=== PATIENT | male | born 1985 | race Caucasian/White ===

== ENCOUNTER 2020-12-22 14:04 | Inpatient (IN) | payer MEDICAID ==
[~2020-12-22] VITALS: Ht 188 cm; Wt 110.0 kg
--- NOTE | 2020-12-22 14:39 | PHYS DOC ---
Past History Past Medical History: Diabetes, Hypertension Past Surgical History: Other Additional Past Surgical Histo: hernia repair, cyst Alcohol Use: Occasionally General Adult EDM: Chief Complaint: ABDOMINAL PAIN HPI: HPI: Patient is a 35-year-old male coming in for 4 days of abdominal pain, vomiting. Has not had a bowel movement since 4 days ago. Patient states he has burning in his chest after vomiting. Has any cough or fevers. No known sick contacts. Patient states he had a history of diabetes and was taking Metformin but stopped because of "the rodriguez". He is unable to say whether he has been out of it for over a year. Denies any other medical history. Denies any alcohol, tobacco, drug use. Review of Systems: Review of Systems: Constitutional: Denies fever or chills Eyes: Denies change in visual acuity HENT: Denies nasal congestion or sore throat Respiratory: Denies cough or shortness of breath Cardiovascular: Denies chest pain or edema GI: Denies abdominal pain, nausea, vomiting, bloody stools or diarrhea : Denies dysuria Musculoskeletal: Denies back pain or joint pain Integument: Denies rash Neurologic: Denies headache, focal weakness or sensory changes Endocrine: Denies polyuria or polydipsia Lymphatic: Denies swollen glands Psychiatric: Denies depression or anxiety Allergies: Allergies: Allergies Coded Allergies Type Severity Reaction Last Updated Verified No Known Drug Allergies 12/22/20 No Physical Exam: PE: Constitutional: Well developed, well nourished, no acute distress, non-toxic appearance. [] HENT: Normocephalic, atraumatic, bilateral external ears normal, oropharynx moist, no oral exudates, nose normal. [] Eyes: PERRLA, EOMI, conjunctiva normal, no discharge. [] Neck: Normal range of motion, no tenderness, supple, no stridor. [] Cardiovascular:Heart rate regular rhythm, no murmur [] Lungs & Thorax: Bilateral breath sounds clear to auscultation [] Abdomen: Bowel sounds normal, soft, no tenderness, no masses, no pulsatile masses. [] Skin: Warm, dry, no erythema, no rash. [] Back: No tenderness, no CVA tenderness. [] Extremities: No tenderness, no cyanosis, no clubbing, ROM intact, no edema. [] Neurologic: Alert and oriented X 3, normal motor function, normal sensory function, no focal deficits noted. [] Psychologic: Affect normal, judgement normal, mood normal. [] Current Patient Data: Labs: Laboratory Tests Test 12/22/20 14:19 Glucose (Fingerstick) 376 mg/dL (70-99) H Vital Signs: Vital Signs Date Time Temp Pulse Resp B/P (MAP) Pulse Ox O2 Delivery O2 Flow Rate FiO2 12/22/20 14:17 97.8 108 28 160/108 (125) 97 Room Air EKG: EKG: Sinus tachycardia, heart rate 1 2 bpm, normal axis, no ST elevation depression, no ectopy, normal intervals. [] Radiology/Procedures: Radiology/Procedures: Acute Abdominal Series: 12/22/2020 2:46 PM Reason for study: Abdominal pain and emesis Comparison studies: None available. Technique: Frontal view of the chest was obtained along with supine and upright views of the abdomen. Findings: Nonobstructive bowel gas pattern. No air fluid levels or free air. The lungs are clear without acute consolidative opacity. No pleural effusion or pneumothorax. The cardiac and mediastinal contours are normal. Visualized osseous structures are intact. IMPRESSION: 1. Nonobstructed bowel gas pattern. 2. No acute cardiopulmonary findings. [] Heart Score: C/O Chest Pain: No Risk Factors: Risk Factors: DM, Current or recent (<one month) smoker, HTN, HLP, family history of CAD, obesity. Risk Scores: Score 0 - 3: 2.5% MACE over next 6 weeks - Discharge Home Score 4 - 6: 20.3% MACE over next 6 weeks - Admit for Clinical Observation Score 7 - 10: 72.7% MACE over next 6 weeks - Early Invasive Strategies Course & Med Decision Making: Course & Med Decision Making Pertinent Labs and Imaging studies reviewed. (See chart for details) Labs concerning for DKA even though the patient has a history of type 2 diabetes. Admitted to ICU for insulin drip to Dr. Amato [] Gus Disclaimer: Gus Disclaimer: This electronic medical record was generated, in whole or in part, using a voice recognition dictation system. Departure Departure: Impression: Primary Impression: DKA (diabetic ketoacidosis) Disposition: ADMITTED INPATIENT Admitting Physician: Ratna Amato Condition: STABLE Referrals: PEPITO SANON MD (PCP) RINA WEST MD December 22, 2020 14:39
[2020-12-22] MEDS ORDERED: IV RINGERS SOLUTION,LACTATED 1,000 ML IV ONE ×3 (14:45)
[2020-12-22] MEDS ORDERED: LIDO:MAALOX 1:1 20 ML SINGLE DOSE. PO ONE (14:45)
[2020-12-22] MEDS ORDERED: ONDANSETRON PF 4 MG/2 ML VIAL. IVP ONE (14:45)
--- NOTE | 2020-12-22 14:49 | RAD ---
Acute Abdominal Series: 12/22/2020 2:46 PM Reason for study: Abdominal pain and emesis Comparison studies: None available. Technique: Frontal view of the chest was obtained along with supine and upright views of the abdomen. Findings: Nonobstructive bowel gas pattern. No air fluid levels or free air. The lungs are clear without acute consolidative opacity. No pleural effusion or pneumothorax. The car diac and mediastinal contours are normal. Visualized osseous structures are intact. IMPRESSION: 1. Nonobstructed bowel gas pattern. 2. No acute cardiopulmonary findings. Electronically signed by: Lisa Weiss MD (12/22/2020 2:47 PM) [id number]
[2020-12-22 14:55] LABS: BASO # 0.2 x10^3/uL (0.0-0.2); BASO % 1 % (0-3); EOS # 0.1 x10^3/uL (0.0-0.7); EOS % 1 % (0-3); HEMATOCRIT 39.1 % (39.0-53.0); HEMOGLOBIN 13.7 g/dL (13.0-17.5); LYMPH # 1.5 x10^3/uL (1.0-4.8); LYMPH % 11 % (24-48); MEAN CORPUSCULAR HEMOGLOBIN 33 pg (25-35); MEAN CORPUSCULAR HGB CONC 35 g/dL (31-37); MEAN CORPUSCULAR VOLUME 93 fL (79-100); MONO # 1.1 x10^3/uL (0.0-1.1); MONO % 8 % (0-9); NEUT % 79 % (31-73); PLATELET COUNT 251 x10^3/uL (140-400); RED BLOOD COUNT 4.19 x10^6/uL (4.30-5.70); RED CELL DISTRIBUTION WIDTH 13.4 % (11.5-14.5); WHITE BLOOD COUNT 13.8 x10^3/uL (4.0-11.0)
--- NOTE | 2020-12-22 15:05 | EKG ---
[address] [address] Test Date: 2020-12-22 Test Time: 14:29:05 Pat Name: JANET SOLIS Department: Room: Gender: M [employer] Clerk: PATRICIO : [id number] Requested By: RINA WEST Order Number: [id number] Reading MD: Measurements Intervals [place] Rate: 102 P: 55 ID: [id number] QRS: 42 QRSD: 96 T: 28 QT: 328 QTc: 432 Interpretive Statements SINUS TACHYCARDIA OTHERWISE NORMAL ECG RI6.02 No previous ECG available for comparison
[2020-12-22 15:30] LABS: BARBITURATES NEG (NEG); BENZODIAZEPINES NEG (NEG); CANNABINOIDS NEG (NEG); COCAINE NEG (NEG); METHADONE NEG (NEG); OPIATES NEG (NEG); PHENCYCLIDINE NEG (NEG)
[2020-12-22 15:31] LABS: AMPHETAMINE/METHAMPHETAMINE NEG (NEG)
[2020-12-22 15:41] LABS: BILIRUBIN,URINE SMALL (NEG); CLARITY,URINE CLEAR; COLOR,URINE YELLOW; GLUCOSE,URINE 500 mg/dL (NEG)
[2020-12-22 15:42] LABS: BACTERIA,URINE 0 /HPF (0-FEW); NITRITE,URINE NEG (NEG); SQUAMOUS EPITHELIAL CELL,UR OCC /LPF; UROBILINOGEN,URINE 0.2 mg/dL (0.2 mg/dL); WBC,URINE RARE /HPF (0-4)
[2020-12-22 15:43] LABS: GRANULAR CASTS,URINE FEW /HPF; HYALINE CASTS, URINE OCC /HPF
[2020-12-22 16:14] LABS: % BANDS 5 % (0-9); % EOS 2 % (0-5); % LYMPHS 13 % (24-48); % MONOS 5 % (0-10); % SEGS 75 % (35-66)
[2020-12-22 16:15] LABS: PLT ESTIMATE ADEQUATE (ADEQUATE)
[2020-12-22 16:17] LABS: POTASSIUM 5.4 mmol/L (3.5-5.1)
[2020-12-22 16:43] LABS: ALBUMIN 2.8 g/dL (3.4-5.0); ALBUMIN/GLOBULIN RATIO 0.7 (1.0-1.7); CALCIUM 8.1 mg/dL (8.5-10.1)
[2020-12-22 16:44] LABS: MAGNESIUM 1.7 mg/dL (1.8-2.4); TOTAL BILIRUBIN 0.7 mg/dL (0.2-1.0)
[2020-12-22 16:47] LABS: CREATININE 0.4 mg/dL (0.7-1.3); GFR 244.8
[2020-12-22] MEDS ORDERED: IV NORMAL SALINE 1,000ML 1,000 ML IV SCH (17:30)
[2020-12-22] MEDS ORDERED: IV DEXTROSE 5 %-0.45 % NACL 1,000 ML IV SCH (17:30)
[2020-12-22] MEDS ORDERED: MORPHINE SULFATE 2 MG/ML DISP.SYRIN. IVP PRN (17:30)
[2020-12-22] MEDS ORDERED: POTASSIUM CHLORIDE 10MEQ 100 ML IV PRN ×4 (17:30)
[2020-12-22] MEDS ORDERED: ACETAMINOPHEN 325 MG TABLET PO PRN (17:30)
[2020-12-22] MEDS ORDERED: MAGNESIUM SULFATE 2GM 50 ML IV PRN (17:30)
[2020-12-22] MEDS ORDERED: ONDANSETRON PF 4 MG/2 ML VIAL. IVP PRN (17:30)
[2020-12-22] MEDS ORDERED: SUCRALFATE 1 GM TABLET. PO ONE (18:00)
--- NOTE | 2020-12-22 19:00 | NUR ---
The patient, JANET SOLIS, 35 y/o, M admitted by ARTIS COSME MD, was given written information regarding hospital policies, unit procedures and contact persons. Valuables were checked and logged. Call light at bedside.
[2020-12-22 19:43] VITALS: BP 146/98
[2020-12-22] MEDS ORDERED: POLYETHYLENE GLYCOL 3350 17 GM PACKET. PO PRN (19:45)
[2020-12-22] MEDS: INSULIN REGULAR VIAL 100 UNIT in IV NORMAL SALINE 100ML 100 ML IV PRN (20:02)
[2020-12-22 20:43] VITALS: BP 141/99
[2020-12-22] MEDS: PANTOPRAZOLE IV 40 MG VIAL. IVP SCH (20:44)
[2020-12-22] MEDS: DOCUSATE SODIUM 100 MG CAPSULE PO SCH (21:00)
[2020-12-22 21:25] LABS: POTASSIUM 4.1 mmol/L (3.5-5.1)
[2020-12-22 21:43] VITALS: BP 124/74
[2020-12-22 21:59] LABS: CREATININE 0.7 mg/dL (0.7-1.3); GFR 128.3
[2020-12-22 22:43] VITALS: BP 110/69
[2020-12-22] MEDS: POTASSIUM CL 20MEQ D5-0.45NACL 1,000 ML IV SCH (23:20)
[2020-12-22 23:43] VITALS: BP 116/67
[2020-12-23] VITALS (9 sets, daily range): BP systolic 102–134; BP diastolic 61–82
[2020-12-23 01:11] LABS: CALCIUM 7.8 mg/dL (8.5-10.1); GFR 68.9; POTASSIUM 3.3 mmol/L (3.5-5.1)
[2020-12-23 01:45] LABS: CREATININE 1.2 mg/dL (0.7-1.3)
[2020-12-23] MEDS: INSULIN REGULAR VIAL 100 UNIT in IV NORMAL SALINE 100ML 100 ML IV PRN (04:32)
[2020-12-23 06:03] LABS: BASO # 0.1 x10^3/uL (0.0-0.2); BASO % 1 % (0-3); EOS # 0.1 x10^3/uL (0.0-0.7); EOS % 2 % (0-3); HEMOGLOBIN 11.3 g/dL (13.0-17.5); LYMPH # 1.1 x10^3/uL (1.0-4.8); LYMPH % 14 % (24-48); MEAN CORPUSCULAR HEMOGLOBIN 32 pg (25-35); MEAN CORPUSCULAR HGB CONC 35 g/dL (31-37); MEAN CORPUSCULAR VOLUME 92 fL (79-100); MONO # 0.8 x10^3/uL (0.0-1.1); MONO % 10 % (0-9); NEUT # 6.1 x10^3uL (1.8-7.7); NEUT % 73 % (31-73); PLATELET COUNT 189 x10^3/uL (140-400); RED CELL DISTRIBUTION WIDTH 13.1 % (11.5-14.5); WHITE BLOOD COUNT 8.3 x10^3/uL (4.0-11.0)
[2020-12-23] MEDS: POTASSIUM CL 20MEQ D5-0.45NACL 1,000 ML IV SCH ×3 (06:10→19:39)
[2020-12-23 06:27] LABS: ALBUMIN 2.3 g/dL (3.4-5.0); ALBUMIN/GLOBULIN RATIO 0.5 (1.0-1.7); ALK PHOS 105 U/L (46-116); ANION GAP 15 (6-14); BLOOD UREA NITROGEN 8 mg/dL (8-26); BUN/CREATININE RATIO 7 (6-20); CALCIUM 7.9 mg/dL (8.5-10.1); CARBON DIOXIDE 17 mmol/L (21-32); CHLORIDE 102 mmol/L (98-107); CREATININE 1.1 mg/dL (0.7-1.3); GFR 76.2; GLUCOSE 172 mg/dL (70-99); POTASSIUM 3.1 mmol/L (3.5-5.1); SODIUM 134 mmol/L (136-145); TOTAL BILIRUBIN 0.4 mg/dL (0.2-1.0); TOTAL PROTEIN 6.7 g/dL (6.4-8.2)
[2020-12-23] MEDS ORDERED: DEXTROSE 50% 25 GM / 50ML DISP.SYRIN. IV PRN (06:30)
[2020-12-23 08:11] LABS: ALT (SGPT) 16 U/L (16-63)
[2020-12-23] MEDS: DOCUSATE SODIUM 100 MG CAPSULE PO SCH ×2 (08:45→19:39)
[2020-12-23] MEDS: PANTOPRAZOLE IV 40 MG VIAL. IVP SCH ×2 (08:45→19:38)
[2020-12-23] MEDS: INSULIN LISPRO 300 UNITS/3 ML VIAL. SQ SCH ×3 (09:47→17:15)
[2020-12-23 16:24] LABS: CALCIUM 7.8 mg/dL (8.5-10.1); POTASSIUM 3.4 mmol/L (3.5-5.1)
--- NOTE | 2020-12-23 16:40 | NUR ---
Shift Summary Patient blood sugars continue to be greater that 300s. Insulin drip dc'd today. Treatment will continue. No actue concerns.
--- NOTE | 2020-12-23 17:27 | HP ---
ADMIT DATE: 12/22/2020 HISTORY OF PRESENT ILLNESS: The patient is a 35-year-old male patient who presented to the Emergency Room with a complaint of abdominal pain that has been going on for the last 4 days associated with nausea and vomiting. According to him, he has not had any bowel movement since 4 days ago. The patient stated that he has burning in his chest after vomiting and has no cough or fever. No known sick contact. The patient states he had a history of diabetes and was taking metformin, but stopped because of the coronavirus. He is unable to say whether he has been out of it for over a year. Denied any other medical history. Denied any alcohol, tobacco, or drug use. He apparently was investigated in the Emergency Room and has had lab work done, which showed that his white cell count was slightly high at 13,800. His initial lab work showed a blood sugar of 421. He was acidotic, has dilutional hyponatremia and mild hyperkalemia and high anion gap of 23. He was basically admitted, has received about 3 liters of lactated Ringer's and was admitted to the ICU, started on insulin drip as well as D5 half normal, and his past medical history significant for what seems to be hypercholesterolemia, hypertension, severe gastroesophageal reflux disease and according to him, he was told to have prediabetes, for which he was on Glucophage that he stopped taking at the onset of rodriguez; however, according to him, he has been having polydipsia and polyuria for the last 2 months. Denied any ____ weight loss. PAST SURGICAL HISTORY: Significant for left inguinal hernia repair and perineal cyst resection. ALLERGIES: He has no known drug allergies. MEDICATIONS: He has not been on any medication. FAMILY HISTORY: Has one sister who is younger and healthy. His father of a drug overdose. His mother is still alive and works as a registered nurse at the [employer]; she has thyroid problems, but otherwise healthy. SOCIAL HISTORY: He is , has one daughter. He smokes. He drinks alcohol occasionally, but does not use any drugs. He is currently on disability. PHYSICAL EXAMINATION: GENERAL: On arrival to the Emergency Room, he was well-developed, well-nourished, in no acute distress. There was no pallor, jaundice or cyanosis. No lymphadenopathy, no thyromegaly, no jugular venous distention, no lower limb edema. VITAL SIGNS: His heart rate was 108, blood pressure was 160/108, temperature 97.8, respiratory rate was 28 and oxygen saturation was 97% on room air. HEAD, EYES, EARS, NOSE AND THROAT: Normocephalic, atraumatic. NECK: Supple. HEART: Showed normal first and second heart sounds, no gallop or murmur. CHEST: Clear to auscultation. No crepitation or rhonchi. ABDOMEN: Distended, some tenderness mostly in the suprapubic area. No guarding or rigidity. No organomegaly. All hernial orifices intact. Bowel sounds normal. NEUROLOGIC: He was grossly intact. LABORATORY DATA: His lab work on arrival to the Emergency Room showed a white cell count of 13,800, hemoglobin 13.7, hematocrit 39, MCV 93 and platelet count 251,000 with a manual differential showed 79% polymorphs, 11% lymphocytes, 8% monocytes. His chemistry initially showed a serum sodium 129, potassium 5.4, chloride 95, bicarbonate 11, anion gap of 23, BUN 12, creatinine 0.4. Estimated GFR was 244 mL per minute. His glucose was 121, calcium was 8.1, magnesium was 1.7. Total bilirubin and ALT were normal. AST and alkaline phosphatase slightly elevated. Total protein 7, albumin was 2.8. Serum lipase was ____. His venous blood gas showed a pH of 7.22, a pCO2 of 17, pO2 of 92, bicarbonate 7 and oxygen saturation was 96% on FiO2 of 21%. Urinalysis showed the urine was yellow, clear with a pH of 5.5, specific gravity of 1.030. There was large amount of protein, large amount of glucose, large amount of ketones, moderate amount of blood, negative for nitrite, small bilirubin. The leukocyte esterase was negative. There was 3-5 rbc's, rare wbc's and no bacteria. Toxic screen was essentially negative. Has acute abdomen series, which showed the patient has nonobstructive bowel gas pattern. No air fluid level or free air. The lungs are clear without acute consolidative opacity. No pleural effusion or pneumothorax. The cardiac and mediastinal contours are normal. ASSESSMENT AND PLAN: The patient was admitted with diabetic ketoacidosis, treated as per diabetic ketoacidosis. Once his blood sugar is well controlled, we will start him on insulin sliding scale and obviously we will also start antihypertensive medication and his cholesterol lowering agent. Obviously started educating him about how to use insulin and also get diabetic education. WALDEMAR/ROSANGELA/LORIE DR: WALDEMAR/socorro TID: [id number]
--- NOTE | 2020-12-24 01:08 | PN ---
DATE: 12/23/2020 SUBJECTIVE: The patient is resting slightly propped up in bed, in no apparent distress. He continued to have mild abdominal pain, but has no more nausea and vomiting and no burning sensation in chest. Starting on Protonix. His blood sugar is much better controlled and has tolerated his breakfast and lunch. PHYSICAL EXAMINATION: GENERAL: When I examined him, he looked well and was clearly in no apparent respiratory distress. No pallor, jaundice, cyanosis, or thyromegaly. No jugular distention. No limb edema. VITAL SIGNS: His heart rate was 85, blood pressure was 116/73, temperature 97.8, respiratory rate 20, and oxygen saturation was 93% on room air. The rest of clinical exam stable. LABORATORY DATA: This morning showed a serum sodium 133, potassium 3.3, chloride 101, bicarbonate 16, anion gap of 16, BUN of 8, creatinine 1.2. Estimated GFR was 68 mL per minute. His glucose was 226 and calcium was 7.8. His white cell count is 8300, hemoglobin 11, hematocrit 32, MCV 92 and platelet count of 189,000 with normal manual differential. ASSESSMENT: This is a 35-year-old male patient who was admitted with diabetic ketoacidosis, probably type 1 diabetes mellitus. He has also history of hyperlipidemia, gastroesophageal reflux disease. PLAN: My plan is to continue with insulin sliding scale and we will monitor him overnight and however, he can go home tomorrow to continue on insulin sliding scale. Probably, he can continue his metformin. He will need obviously education to check his blood sugar and to inject himself with insulin and he was also counseled about smoking. WALDMEAR/EVELYNE DR: Sonam TID: [id number]
[2020-12-24] MEDS: POTASSIUM CL 20MEQ D5-0.45NACL 1,000 ML IV SCH (05:07)
--- NOTE | 2020-12-24 05:40 | NUR ---
Pt reports having a moderate BM last night and denies any further abdominal discomfort. Pt is very hopeful to return home later today. Pt educated on importance of checking his blood sugars and administering insulin, V/U but will require reinforcement.
[2020-12-24 05:46] VITALS: BP 104/68
[2020-12-24 06:06] LABS: BASO # 0.1 x10^3/uL (0.0-0.2); BASO % 1 % (0-3); EOS # 0.1 x10^3/uL (0.0-0.7); EOS % 2 % (0-3); HEMATOCRIT 33.8 % (39.0-53.0); HEMOGLOBIN 11.6 g/dL (13.0-17.5); LYMPH # 1.5 x10^3/uL (1.0-4.8); LYMPH % 20 % (24-48); MEAN CORPUSCULAR HEMOGLOBIN 32 pg (25-35); MEAN CORPUSCULAR HGB CONC 34 g/dL (31-37); MEAN CORPUSCULAR VOLUME 92 fL (79-100); MONO # 0.7 x10^3/uL (0.0-1.1); MONO % 10 % (0-9); NEUT % 68 % (31-73); PLATELET COUNT 189 x10^3/uL (140-400); RED BLOOD COUNT 3.66 x10^6/uL (4.30-5.70); RED CELL DISTRIBUTION WIDTH 13.2 % (11.5-14.5); WHITE BLOOD COUNT 7.4 x10^3/uL (4.0-11.0)
[2020-12-24 06:21] LABS: ALBUMIN 2.2 g/dL (3.4-5.0); ALBUMIN/GLOBULIN RATIO 0.5 (1.0-1.7); CREATININE 0.9 mg/dL (0.7-1.3); POTASSIUM 3.4 mmol/L (3.5-5.1); TOTAL BILIRUBIN 0.4 mg/dL (0.2-1.0); TOTAL PROTEIN 6.4 g/dL (6.4-8.2)
[2020-12-24] MEDS ORDERED: IV NORMAL SALINE 1,000ML 1,000 ML IV SCH (07:00)
[2020-12-24] MEDS: PANTOPRAZOLE IV 40 MG VIAL. IVP SCH (08:54)
[2020-12-24] MEDS: DOCUSATE SODIUM 100 MG CAPSULE PO SCH (08:54)
[2020-12-24] MEDS: INSULIN LISPRO 300 UNITS/3 ML VIAL. SQ SCH ×2 (09:03→12:00)
[2020-12-24 10:44] VITALS: BP 138/80
[2020-12-24] MEDS ORDERED: INSU100I17 SQ (13:17)
[2020-12-24] MEDS ORDERED: INSU100I13 SQ (13:24)
--- NOTE | 2020-12-24 14:00 | NUR ---
Discharged pt to mother, Lanie, she is an RN and will further educate him on diabetes, medication, insulin, and diet. Pt is A/Ox4, however has severe learning disabilities and is unable to retain information. Vital signs stable, medication prescriptions given to mother.
--- NOTE | 2020-12-24 18:25 | DS ---
DATE OF DISCHARGE: 12/24/2020 ATTENDING PHYSICIANS: Dr. Amato and Dr. Maxwell. FINAL DISCHARGE DIAGNOSES: 1. Uncontrolled diabetes. 2. Diabetic ketoacidosis. 3. Noncompliance of meds. 4. Learning disability related to history of autism. 5. Dilutional hyponatremia, corrected. 6. History of inguinal hernia repair. 7. History of perineal cyst resection. 8. Abdominal pain, resolved. HISTORY AND PHYSICAL: The patient is a 35-year-old gentleman diagnosed with type 2 diabetes. He presented to the ED with abdominal pain, significantly elevated blood sugars of 421 mg/dL. He has anion gap of 23. He was admitted in with DKA. Unfortunately, he has very little insight and he was not taking his oral hypoglycemics prior to coming in. PHYSICAL EXAMINATION: Please see the dictated note. PERTINENT LABORATORY AND X-RAY STUDIES: Admission, hemoglobin was 13.7 g, white count 13,800, repeated was down to 7400 white count. Chemistry panel showed improvement. Anion gap was down to 16. Sodium 137, potassium 3.4 mEq. Sugars were coming down slowly in the mid 200s. Transaminases and liver panel unremarkable. COURSE IN HOSPITAL: The patient was admitted. He was started on insulin with hydration and serial chemistry. Diet was advanced and he did fairly well. I had a chance to discuss the case with the mom. She requested a referral to signs cleaner. I said this can be done as an outpatient through Dr. Fam's office. On the 3rd hospital day, his vital signs are stable. He wanted to go home. I thought this is reasonable. We did our best for diabetic education and show him how to administer the shots. I did recommend a NovoPen where he can ____ of the dosage instead of aspirating. I therefore wrote scripts for NovoPen regular 20 units before each meal 3 times a day and 20 units of Lantus at bedtime. I suggested that he monitor his fingersticks. I also wrote for glucometer and lancets, and hopefully his mother can help him get into the process of administering his insulin injections. He will follow up with Dr. Fam and also at that time have a referral for Endocrinology. The patient was then discharged from our hospital in stable condition with explicit drug and followup care. MAX/ANTONIA DR: MAX/socorro TID: [id number] CC: PEPITO FAM
== END 2020-12-24 13:55 | disposition home or self-care (01) | DRG 637 ==
LOC: ER 14:04 → ICU 18:54 → 1 SOUTH 12-23 06:03
PROVIDERS: ADMIT Internal Medicine; ATTEND Internal Medicine
DX: E10.10 Type 1 diabetes mellitus with ketoacidosis without coma (principal); E43 Unspecified severe protein-calorie malnutrition; E87.1 Hypo-osmolality and hyponatremia; F84.0 Autistic disorder; F81.9 Developmental disorder of scholastic skills, unspecified; I10 Essential (primary) hypertension; F17.200 Nicotine dependence, unspecified, uncomplicated; E87.5 Hyperkalemia; E78.5 Hyperlipidemia, unspecified; E78.00 Pure hypercholesterolemia, unspecified; K21.9 Gastro-esophageal reflux disease without esophagitis; R10.9 Unspecified abdominal pain; Z91.14 Patient's other noncompliance with medication regimen; Z82.49 Family history of ischemic heart disease and other diseases of the circulatory system; Z81.8 Family history of other mental and behavioral disorders; Z68.31 Body mass index [BMI] 31.0-31.9, adult
CPT/HCPCS: 36415; 74022; 80048; 80053; 80307; 81001; 82803; 82947; 83605; 83690; 83735; 84484; 85007; 85025; 93005; 96361; 96374; C9113; G0480; J1815; J2405; J7120; 99285-25